=== PATIENT | female | born 1975 | race American Indian/Alaskan Native ===

== ENCOUNTER 2019-12-24 10:39 | Outpatient (CLI) | payer MEDICARE, MEDICAID ==
--- NOTE | 2019-12-24 14:41 | Mammography Report ---
DIGITAL SCREENING MAMMOGRAM WITH CAD, 12/24/2019 INDICATION: Routine screening mammography. TECHNIQUE: Digital bilateral 2D mammography was obtained in the craniocaudal and mediolateral obliq ue projections. This examination was interpreted with the benefit of Computer-Aided Detection analysi s. COMPARISON: None available. Baseline screening. FINDINGS: Breast Density: The breasts are almost entirely fatty. There is no evidence of dominant mass, suspicious calcifications or architectural distortion in eithe r breast. There are generalized bilateral benign calcifications. IMPRESSION: Follow up recommendation: Routine yearly BI-RADS Category 2: Benign. A "normal" or negative report should not discourage follow up or biopsy of a clinically significant f inding. A written summary of these findings will be mailed to the patient. The patient will be entered into a mammography reporting system which will generate a reminder letter for the patient's next appointmen t at the appropriate interval. The [employer] recommends yearly mammograms starting at age 40 and continuing as l vinod as a woman is in good health. Breast MRI is recommended for women with an approximate 20-25% or greater lifetime risk of breast cancer, including women with a strong family history of breast or ova rowan cancer or who have been treated for Hodgkin's disease. Signer Name: Julian Reina MD Signed: 12/24/2019 2:37 PM Workstation Name: [id number]
== END 2019-12-24 10:40 | disposition home or self-care (01) ==
LOC: MAMMO 10:39
PROVIDERS: ATTEND Urology
DX: Z12.31 Encounter for screening mammogram for malignant neoplasm of breast (principal)
CPT/HCPCS: 77067

== ENCOUNTER 2020-10-24 06:00 | Emergency (ER) | payer MEDICARE, MEDICAID ==
[2020-10-24 06:37] VITALS: BP 139/87
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
--- NOTE | 2020-10-24 08:44 | XRay Report ---
RIGHT ANKLE 3 VIEWS INDICATION: ankle pain. COMPARISON: None at this facility IMPRESSION: There is been previous fixation of the tibiotalar joint by metal plate and screws anteri barb and additional screws posteriorly. The metal plate seen anteriorly is fractured near the ankle j oint. No normal ankle mortise T6 is identified. Severe posttraumatic degenerative changes at the tib iotalar joint are evident. There are moderate degenerative changes at the subtalar joint. No acute fr acture or bony destruction is appreciated. There is diffuse soft tissue edema. Signer Name: Cayden Sebastian Jr, MD Signed: 10/24/2020 8:39 AM Workstation Name: [id number]
== END 2020-10-24 09:06 | disposition home or self-care (01) ==
LOC: ED 06:00
DX: M25.571 Pain in right ankle and joints of right foot (principal); M19.072 Primary osteoarthritis, left ankle and foot; N83.209 Unspecified ovarian cyst, unspecified side; Z98.890 Other specified postprocedural states; F17.200 Nicotine dependence, unspecified, uncomplicated
CPT/HCPCS: 99283

== ENCOUNTER 2021-02-14 09:56 | Emergency (ER) | payer MEDICARE ==
[2021-02-14 10:10] VITALS: BP 169/112
[2021-02-14] MEDS ORDERED: KETOROLAC 10 MG TAB PO ONE (10:39)
[2021-02-14] MEDS ORDERED: DEXAMETHASONE 4 MG TAB PO ONE (10:39)
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
--- NOTE | 2021-02-14 11:09 | XRay Report ---
RIGHT SHOULDER HISTORY: Right shoulder pain. COMPARISON: None. TECHNIQUE: 3 views of the right shoulder were obtained. FINDINGS: Bones: No fracture or dislocation. Joint spaces: Mild glenohumeral osteoarthritic change. Soft tissues: No significant abnormality. Additional findings: None. IMPRESSION: Right shoulder without evidence of acute osseous injury. Signer Name: Herbie Steiner MD Signed: 02/14/2021 11:04 AM Workstation Name: [id number]
== END 2021-02-14 11:30 | disposition home or self-care (01) ==
LOC: ED 09:56
DX: M25.511 Pain in right shoulder (principal); M19.011 Primary osteoarthritis, right shoulder; I10 Essential (primary) hypertension; J45.909 Unspecified asthma, uncomplicated; F17.210 Nicotine dependence, cigarettes, uncomplicated; Z98.890 Other specified postprocedural states
CPT/HCPCS: 73030; 99283; J8540

== ENCOUNTER 2021-06-27 05:58 | Day surgery (SDC) | payer MEDICARE ==
[2021-06-23 10:31] LABS: Hematocrit 38.6 % (30.3-42.9); Hemoglobin 12.4 gm/dl (10.1-14.3); Mean Corpuscular HGB Conc 32 % (30-34); Mean Corpuscular Volume 76 fl (79-97); Platelet Count 375 K/mm3 (140-440); Red Blood Count 5.05 M/mm3 (3.65-5.03); Red Cell Distribution Width 16.7 % (13.2-15.2)
[2021-06-23 10:42] LABS: Alanine Aminotransferase 12 units/L (7-56); Albumin 3.7 g/dL (3.9-5); Blood Urea Nitrogen 10 mg/dL (7-17); Calcium 9.5 mg/dL (8.4-10.2); Hemolysis Index 0
[2021-06-23 10:43] LABS: BUN/Creatinine Ratio 14
[2021-06-27] MEDS ORDERED: LACTATED RINGERS 1,000 ML ONE (06:37)
[2021-06-27] MEDS ORDERED: BACTERIOSTATIC SODIUM CHLORIDE 0.9% 30 ML VIAL INFILTRATI ONE (06:37)
[2021-06-27] MEDS ORDERED: ceFAZolin/STERILE WATER 2 GM/20 ML SYRINGE IV NR (07:00)
[2021-06-27] MEDS ORDERED: HYDROmorphone 1 MG/1 ML INJ ONE (07:22)
[2021-06-27] MEDS ORDERED: propofoL 200 MG/20 ML VIAL IV ONE (07:22)
--- NOTE | 2021-06-27 07:32 | Anesthesia Day of Surgery ---
Anesthesia Day of Surgery - Day of Surgery Patient Examined: Yes Patient H&P Reviewed: Yes Patient is NPO: Yes Cardiac Clearance: Yes
[2021-06-27] MEDS ORDERED: ACETAMINOPHEN 500 MG TAB ONE (07:35)
[2021-06-27] MEDS ORDERED: FAMOTIDINE 20 MG/2 ML INJ IV NR (07:35)
--- NOTE | 2021-06-27 07:35 | Anesthesia Consultation ---
Anesthesia Consult and Med Hx Date of service: 06/27/21 - Airway Anesthetic Teeth Evaluation: Good ROM Head & Neck: Adequate Mental/Hyoid Distance: Adequate Mallampati Class: Class II Intubation Access Assessment: Good - Pre-Operative Health Status ASA Pre-Surgery Classification: ASA3 Proposed Anesthetic Plan: General - Pulmonary Hx Smoking: Yes (STOPPED X 3 WEEK (1/2PPD X 20 YRS) , DAILY THC) Hx Asthma: Yes (INHALER AND NEBULIZER PRN) Hx Sleep Apnea: No (ANTIONETTE PRE SCREEN HIGH RISK) - Cardiovascular System Hx Hypertension: Yes (X 4 YRS) Hx Coronary Artery Disease: No (Had NST and ECHO; on chart) - Central Nervous System Hx Back Pain: Yes Hx Psychiatric Problems: Yes (Anxiety/Depression) - Gastrointestinal Hx Gastroesophageal Reflux Disease: Yes (Occasional) - Endocrine Hx Liver Disease: Yes (ENLARGED LIVER- TO SCHEDULE F/U) - Hematic Hx Anemia: No Hx Sickle Cell Disease: No - Other Systems Hx Substance Use: Yes (MARIJUANA 2-3X PER DAY) Hx Cancer: No Hx Obesity: Yes - Additional Comments Anesthesia Medical History Comments: +Cardiac clearance
[2021-06-27] MEDS ORDERED: FAMOTIDINE 20 MG/2 ML INJ IV ONE (07:37)
[2021-06-27] MEDS ORDERED: BUPIVACAINE/PF (0.5%) 5 MG/1 ML 30 ML VIAL INFILTRATI ONE ×2 (07:41→08:31)
[2021-06-27] MEDS ORDERED: LIDOCAINE (1%) 10 MG/1 ML VIAL 20 ML MDV ONE (07:41)
[2021-06-27] MEDS ORDERED: HYDROmorphone 1 MG/1 ML INJ IV PRN ×2 (08:00)
[2021-06-27] MEDS ORDERED: LACTATED RINGERS 1,000 ML IV SCH (08:00)
[2021-06-27] MEDS ORDERED: ACETAMINOPHEN 500 MG TAB PO SCH (08:00)
[2021-06-27] MEDS ORDERED: GABAPENTIN 300 MG CAP PO NR (08:00)
[2021-06-27] MEDS ORDERED: MAGNESIUM OXIDE 400 MG TAB PO SCH (08:00)
[2021-06-27] MEDS ORDERED: CELECOXIB 200 MG CAP PO NR (08:00)
[2021-06-27] MEDS ORDERED: ONDANSETRON 4 MG/2 ML INJ IV PRN (08:00)
[2021-06-27] MEDS ORDERED: MIDAZOLAM 2 MG/2 ML INJ IV NR (08:00)
[2021-06-27] MEDS ORDERED: SODIUM CHLORIDE 0.9% IRR 1,500 ML BOTTLE IR ONE (08:30)
[2021-06-27] MEDS ORDERED: WATER FOR IRRIG STERILE 1,500 ML BOTTLE IR ONE (08:30)
[2021-06-27] MEDS ORDERED: LIDOCAINE (1%) 10 MG/1 ML VIAL 20 ML MDV INFILTRATI ONE (08:31)
[2021-06-27] MEDS ORDERED: ROCURONIUM 50 MG/5 ML INJ IV ONE (08:47)
[2021-06-27] MEDS ORDERED: LIDOCAINE MPF (2%) 20 MG/1 ML VIAL 5 ML ONE (08:47)
[2021-06-27] MEDS ORDERED: SODIUM CHLORIDE 0.9% IRRIG SOLN 2000 ML IR ONE (09:13)
[2021-06-27] MEDS ORDERED: GLYCOPYRROLATE 0.4 MG/2 ML INJ ONE ×2 (09:25→09:33)
[2021-06-27] MEDS ORDERED: NEOSTIGMINE 10MG/10 ML INJ MDV ONE (09:25)
--- NOTE | 2021-06-27 09:28 | Short Stay Summary ---
Short Stay Documentation Date of service: 06/27/21 - History Principal diagnosis: SYMPTOMATIC CHOLELITHIASIS H&P: obtained from office - Allergies and Medications Current Medications: Allergies No Known Allergies Allergy (Verified 02/11/13 23:44) Home Medications Medication Instructions Recorded Confirmed Last Taken Type Albuterol Sulfate [Albuterol 0.63% 1 dose IH PRN PRN 06/19/21 06/27/21 06/13/21 09:00 History NEBS] Albuterol Sulfate [Proventil Hfa] 2 puff IH PRN PRN 06/19/21 06/27/21 06/13/21 09:00 History Cetirizine HCl [ZyrTEC 10mg cap] 10 mg PO PRN PRN 06/19/21 06/27/21 06/26/21 09:00 History Omeprazole Magnesium [PriLOSEC Otc] 20 mg PO PRN PRN 06/19/21 06/19/21 Unknown History Oxycodone HCl/Acetaminophen 1 each PO Q6HR PRN 06/19/21 06/19/21 Unknown History [Percocet 10/325 mg] amLODIPine [Norvasc] 10 mg PO DAILY 06/19/21 06/27/21 06/27/21 05:00 History Active Medications Acetaminophen (Acetaminophen 500 Mg Tab) 1,000 mg PO ONCE@0800 PETE Stop: 06/27/21 20:00 Celecoxib (Celecoxib 200 Mg Cap) 400 mg PO PREOP NR Stop: 06/27/21 20:00 Famotidine (Famotidine 20 Mg/2 Ml Inj) 20 mg IV PREOP NR Gabapentin (Gabapentin 300 Mg Cap) 300 mg PO PREOP NR Stop: 06/27/21 20:00 Hydromorphone HCl (Hydromorphone 1 Mg/1 Ml Inj) 0.25 mg IV Q10MIN PRN PRN Reason: Pain, Moderate (4-6) Stop: 06/27/21 20:00 Hydromorphone HCl (Hydromorphone 1 Mg/1 Ml Inj) 0.5 mg IV Q10MIN PRN PRN Reason: Pain , Severe (7-10) Stop: 06/27/21 17:00 Lactated Ringer's (Lactated Ringers) 1,000 mls @ 125 mls/hr IV DIRECT PETE Last Admin: 06/27/21 06:50 Dose: 125 mls/hr Magnesium Oxide (Magnesium Oxide 400 Mg Tab) 400 mg PO ONCE@0800 PETE Stop: 06/27/21 20:00 Methocarbamol (Methocarbamol 750 Mg Tab) 1,500 mg PO ONCE@0800 PETE Stop: 06/27/21 20:00 Midazolam HCl (Midazolam 2 Mg/2 Ml Inj) 2 mg IV PREOP NR Stop: 06/27/21 23:59 Ondansetron HCl (Ondansetron 4 Mg/2 Ml Inj) 4 mg IV ONCE PRN PRN Reason: Nausea And Vomiting Stop: 06/27/21 20:00 - Brief post op/procedure progress note Date of procedure: 06/27/21 Pre-op diagnosis: Calculus of gallbladder without cholecystitis or obstruction Post-op diagnosis: same Procedure: Laparoscopic lysis of adhesions, cholecystectomy Anesthesia: GETA, local Findings: Contracted gallbladder with small stones. Adhesions to duodenum. Omental adhesions to the midline abdominal wall Hepatomegaly Surgeon: MADIHA SHELL (Assist: Mikhail Schafer MD) Estimated blood loss: minimal Pathology: list (Gallbladder) Specimen disposition: to lab Condition: stable - Hospital course Hospital course: Patient observed in PACU and discharged home in stable condition when criteria met - Disposition Condition at discharge: Good Disposition: 01 HOME / SELF CARE / HOMELESS Short Stay Discharge Plan Activity: other (No driving while taking prescription pain medication. No heavy lifting for 1 week) Diet: low fat Wound: open to air, per your surgeon's advice Additional Instructions: Please see printed discharge paperwork Follow up with: RADHA FIELDS MD [Primary Care Provider] - 7 Days MADIHA SHELL DO [Staff Physician] - 14 Days
[2021-06-27] MEDS ORDERED: ONDANSETRON 4 MG/2 ML INJ ONE (09:31)
--- NOTE | 2021-06-27 09:32 | Operative Report ---
Operative Report Operative Report: Date of procedure: 06/27/21 Pre-op diagnosis: Calculus of gallbladder without cholecystitis or obstruction Post-op diagnosis: same Procedure: Laparoscopic lysis of adhesions, cholecystectomy Anesthesia: GETA, local Findings: Contracted gallbladder with small stones. Adhesions to duodenum. Omental adhesions to the midline abdominal wall Hepatomegaly Surgeon: MADIHA SHELL (Assist: Mikhail Schafer MD) Estimated blood loss: minimal Pathology: list (Gallbladder) Specimen disposition: to lab Condition: stable Hospital course: Patient observed in PACU and discharged home in stable condition when criteria met HPI an indication: 45-year-old female who was referred to the surgery clinic by gastroenterology for evaluation of symptomatic cholelithiasis. Patient had previously undergone complete work-up for dilated bile ducts which included LFTs, bilirubin, MRCP. LFTs and bilirubin were within normal limits and MRCP was negative for choledocholithiasis. Patient was having intermittent right upper quadrant abdominal pain radiating to the back associated with food. It was recommended that the patient undergo cholecystectomy. All risks, benefits, alternatives to surgery were discussed in detail and questions answered. Consent was obtained for laparoscopic, possible open cholecystectomy, possible cholangiogram. Procedure in detail: The patient was identified in the preoperative area and taken back to the operating room, placed on the operating room table in supine position. After anesthesia was induced, the abdomen was prepped and draped in usual sterile fashion and timeout was performed. Local anesthetic was infiltrated into all of the skin incision sites. A franky incision was made in the left upper quadrant at Jama's point through which a Veress needle was inserted. The Veress needle positioning was confirmed using saline drop test. During the first 2 attempts the pressures were high and therefore the Veress needle was removed. During the third attempt the Veress needle was successfully placed and the abdomen insufflated to 15 mmHg without incident. A right mid abdominal incision was then made through which a 5 mm Optiview trocar was placed. The abdomen was inspected and there was no underlying injury to the abdominal structures. The Veress needle was identified and removed. There were omental adhesions to the midline anterior abdominal wall. An additional right upper quadrant 5 mm trocar was placed under direct visualization along with 12 mm subxiphoid trocar. The patient was placed in reverse Trendelenburg and tilted to the left. Using the LigaSure the omental adhesions were very meticulously dissected. Once enough room was created, a 5 mm supraumbilical trocar was placed under direct visualization. The gallbladder was visualized, contracted, with adhesions to the duodenum. Gallbladder fundus was grasped and retracted cephalad and these adhesions were dissected using a combination of blunt dissection and electrocautery. Great care was taken to avoid injury to the surrounding structures. The cystic duct and artery were carefully skeletonized. The medial and lateral peritoneal attachments to the gallbladder were dissected using a combination of blunt dissection with the [place] and hook electrocautery. The cystic duct and artery were the only 2 structures seen entering the gallbladder and the critical view was successfully obtained. 3 clips were placed on the proximal aspect of the cystic duct and 1 distally and this was transected in between the clips using EndoShears. 2 clips were placed on the proximal aspect of the cystic artery and 1 distally this was transected in between the clips using EndoShears. The gallbladder was dissected from the liver bed using electrocautery. The gallbladder was placed into a Endo Catch bag and removed from the abdomen via the 12mm port. The gallbladder fossa was then inspected and there was no identifiable bleeding or bile leakage. Hemostasis was ensured. The clips on the cystic duct and artery were visualized and intact. The gallbladder fossa and Morison's pouch were irrigated until the irrigant returned clear. The patient was then placed into neutral position. Any additional irrigant was evacuated. The 12 mm port fascia was closed with interrupted 0 Vicryl suture using the Micheal Guallpa device. The remaining ports were removed under direct visualization. Skin incisions were closed with 4-0 Monocryl subcuticular stitches and skin glue. All skin incisions were once again infiltrated with local anesthetic. At the end case all sponge, instrument, sharp counts were correct 2. The patient was awoken from anesthesia, extubated, and taken to PACU in stable condition.
[2021-06-27] MEDS ORDERED: dexAMETHasone 20 MG/5 ML VIAL ONE (09:37)
[2021-06-27] MEDS ORDERED: SUGAMMADEX SODIUM 200 MG/2 ML VIAL IV ONE (09:41)
--- NOTE | 2021-06-27 10:33 | Post Anesthesia Evaluation ---
- Post Anesthesia Evaluation Patient Participated: Yes Airway Patent: Yes Stable Respiratory Function: Yes Nausea/Vomiting: No Temp > 96.8F: Yes Pain Manageable: Yes Adequeate Hydration: Yes Anesthesia Complications: No Block Receding Appropriately: Not Applicable Patient on Ventilator: No
[2021-06-27 10:47] VITALS: BP 150/86
[2021-06-27] MEDS ORDERED: oxyCODONE /ACETAMINOPHEN 5-325MG TAB PO PRN (11:00)
== END 2021-06-27 11:20 | disposition home or self-care (01) ==
LOC: OR 05:58
PROVIDERS: ATTEND Surgery
DX: K80.10 Calculus of gallbladder with chronic cholecystitis without obstruction (principal); K66.0 Peritoneal adhesions (postprocedural) (postinfection); I10 Essential (primary) hypertension; K21.9 Gastro-esophageal reflux disease without esophagitis; E66.9 Obesity, unspecified; F32.9 Major depressive disorder, single episode, unspecified; F41.9 Anxiety disorder, unspecified; Z20.822 Contact with and (suspected) exposure to COVID-19; Z79.899 Other long term (current) drug therapy; Z87.891 Personal history of nicotine dependence; Z98.891 History of uterine scar from previous surgery; Z98.890 Other specified postprocedural states; Z68.42 Body mass index [BMI] 45.0-49.9, adult
CPT/HCPCS: 36415; 47562; 80053; 84703; 85027; 88304; J0690; J1100; J1170; J1815; J2250; J2405; J2704; J2710; J3490; J7120; U0003